=== PATIENT | male | born 1990 | race African-American/Black ===

== ENCOUNTER 2022-08-22 05:36 | Emergency (ER) | payer SELFPAY ==
[~2022-08-22] VITALS: Ht 175.3 cm; Wt 96.6 kg
[2022-08-22] MEDS ORDERED: AMOXICILLIN500 MG PO (06:04)
[2022-08-22] MEDS ORDERED: PREDNISONE20 MG PO (06:04)
[2022-08-22 06:10] VITALS: BP 120/73
== END 2022-08-22 06:10 | disposition home or self-care (01) ==
LOC: FSED 05:56
DX: H66.92 Otitis media, unspecified, left ear (principal); F17.210 Nicotine dependence, cigarettes, uncomplicated
CPT/HCPCS: 99282